=== PATIENT | female | born 1970 | race Caucasian/White ===

== ENCOUNTER → 2025-03-12 13:56 | Outpatient (REF) | payer BC, SELFPAY | LOC: RCS 13:56 | PROVIDERS: ATTENDING PHYSICIAN Internal Medicine; FAMILY PHYSICIAN Student in an Organized Health Care Education/Training Program | DX: R94.31 Abnormal electrocardiogram [ECG] [EKG] (principal); R06.02 Shortness of breath | CPT/HCPCS: 93306 ==

== ENCOUNTER 2025-07-13 16:28 | Inpatient (IN) | payer BC, SELFPAY ==
[2025-07-13 12:09] VITALS: BP 128/82
[2025-07-13 12:28] LABS: Hematocrit 38.9 % (37.0-47.0); Hemoglobin 14.1 g/dL (12.0-16.0); Mean Corp Hgb Conc. 36.2 g/dL (33.0-37.0); Mean Corpuscular Volume 82.1 fL (81.0-99.0); Nucleated Red Blood Cells % 0 %; Platelet Count 255 10^3/uL (130-400); Red Cell Dist. Width 12.3 % (11.5-14.5)
[2025-07-13 12:52] LABS: ALT (SGPT) 16 U/L (0-35); AST (SGOT) 38 U/L (14-36); Albumin 3.8 g/dl (3.5-5.0); Alkaline Phosphatase 60 U/L (38-126); Blood Urea Nitrogen 5 mg/dl (7-17); Calcium 8.8 mg/dl (8.4-10.2); Carbon Dioxide 29 mmol/L (22-30); Chloride 88 mmol/L (98-107); Glucose 77 mg/dl (70-99); Lipase 116 U/L (23-300); Magnesium 1.6 mg/dl (1.6-2.3); Potassium 4.8 mmol/L (3.5-5.1); Sodium 120 mmol/L (135-145); Total Protein 6.7 g/dl (6.3-8.2); eGFR > 60.00
--- NOTE | 2025-07-13 14:33 | ED.GENMED ---
History of Present Illness
<Cynthia Booker PA-C - Last Filed: 07/13/25 15:49>
General
Chief Complaint: Abdominal Symptoms
Source: patient
Exam Limitations: none
Time Seen by Provider: 07/13/25 14:15
History of Present Illness
History of Present Illness:
55yoF with a history of anxiety, depression, and GERD presenting for evaluation of malaise. Patient traveled to [place] last week and did not drink much during her vacation. She returned home 3 days ago and was constipated. She took a glycerin
suppository 2 days ago and was able to pass 'an inch and a half of stool.' She took a half of a saline enema yesterday. She had a normal bowel movement earlier this morning but had 1 large watery bowel movement later in the day today. She is been
drinking diluted Gatorade to stay hydrated. She is currently complaining of fatigue, muscle cramping, nausea, and a headache. She reports stomach cramping but denies any overt abdominal pain. She has lost about 30 pounds since November of this year.
She had diarrhea in November and had to go to an outpatient hydration station for IV fluids. She has had recurrent mouth sores and had a biopsy done last month by a 1st pressman on web press who thought she may have Crohn's disease. She is scheduled to have an
EGD and colonoscopy in 2 days for further evaluation of this. Her current medications include Trintellix, Nexium, and Lunesta.
Past History
<Cynthia Booker PA-C - Last Filed: 07/13/25 15:49>
Past History
ED Past Medical History: Cancer and HTN
ED Past Surgical History: Gynecological
Social History
Tobacco: Non-smoker
Alcohol: Occasional
Drug: None
Personal:
Living: with family
Employment: Employed
Family History
Family History: Hypertension, Early CAD and Other
Phy Exam
<Cynthia Booker PA-C - Last Filed: 07/13/25 15:49>
General Physical Exam
General Presentation: mild distress
General Skin: warm and dry
General Habitus: normal
General Mental: alert
General Hydration: dry mucous membranes
ENT Exam
ENT Exam: normocephalic
Cardiovascular Exam
Cardiovascular Exam: regular rate/rhythm
Pulmonary Exam
Pulmonary Exam: lungs clear, no respiratory distress, no rales, no crackles, no rhonchi and no wheezing
Gastrointestinal Exam
Gastrointestinal Exam: non tender, soft and non distended
Neurological Exam
Neurological Exam: alert
Mobile Coma Scale
Eye Opening: Spontaneous
Verbal Response: Oriented
Motor Response: Obeys Commands
GCS Total Score: 15
Skin Exam
Skin Exam: normal color and warm/dry
Psychiatric Exam
Psychiatric Exam: normal mood/affect
Course
<Cynthia Booker PA-C - Last Filed: 07/13/25 15:49>
Orders/Labs/Results
Orders:
Orders
07/13/25 12:21
Complete Blood Count/With Diff Urgent
07/13/25 12:22
Comprehensive Metabolic Panel Urgent
Lipase Urgent
Magnesium Urgent
07/13/25 14:33
Electrocardiogram (*1) Urgent
Reason for Study: Vertigo / Dizzy
EKG- Treatment ONCE
Osmolality, Random Urine Urgent
Date Specimen was Collected: 07/13/25
Time Specimen was Collected: 15:31
Urine Sodium Urgent
Date Specimen was Collected: 07/13/25
Time Specimen was Collected: 15:31
07/13/25 14:38
Add On- LAB Urgent
Tests Added?: magnesium
07/13/25 14:48
0.9% Sodium Chloride 500 ml [Nss] 500 ml IV BOLUS
Abnormal Lab Results
07/13/25 07/13/25
12:21 12:22
Absolute Lymphs (auto) 3.9 H 10^3/uL
(1.2-3.4)
Absolute Eos (auto) 1.6 H 10^3/uL
(0-0.7)
Neutrophils % 25.5 L %
(42.2-75.2)
Eosinophils % 19.4 H %
(0-6)
Sodium 120 L mmol/L
(135-145)
Chloride 88 L mmol/L
(98-107)
BUN 5 L mg/dl
(7-17)
AST 38 H U/L
(14-36)
07/13/25 12:21
07/13/25 12:22
Vital Signs
Initial and Last Documented VS:
Initial Vital Signs
Temp Pulse Resp BP Pulse Ox
97.9 F 67 19 128/82 100
07/13/25 12:09 07/13/25 12:09 07/13/25 12:09 07/13/25 12:09 07/13/25 12:09
Last Documented Vital Signs
Temp Pulse Resp BP Pulse Ox
97.9 F 54 9 128/70 100
07/13/25 12:09 07/13/25 15:30 07/13/25 15:30 07/13/25 15:25 07/13/25 14:38
<Denis Lord MD - Last Filed: 07/13/25 15:14>
Orders/Labs/Results
Orders:
Orders
07/13/25 12:21
Complete Blood Count/With Diff Urgent
07/13/25 12:22
Comprehensive Metabolic Panel Urgent
Lipase Urgent
Magnesium Urgent
07/13/25 14:33
Electrocardiogram (*1) Urgent
Reason for Study: Vertigo / Dizzy
EKG- Treatment ONCE
Osmolality, Random Urine Urgent
Date Specimen was Collected: 07/13/25
Time Specimen was Collected: 15:31
Urine Sodium Urgent
Date Specimen was Collected: 07/13/25
Time Specimen was Collected: 15:31
07/13/25 14:38
Add On- LAB Urgent
Tests Added?: magnesium
07/13/25 14:48
0.9% Sodium Chloride 500 ml [Nss] 500 ml IV BOLUS
Abnormal Lab Results
07/13/25 07/13/25
12:21 12:22
Absolute Lymphs (auto) 3.9 H 10^3/uL
(1.2-3.4)
Absolute Eos (auto) 1.6 H 10^3/uL
(0-0.7)
Neutrophils % 25.5 L %
(42.2-75.2)
Eosinophils % 19.4 H %
(0-6)
Sodium 120 L mmol/L
(135-145)
Chloride 88 L mmol/L
(98-107)
BUN 5 L mg/dl
(7-17)
AST 38 H U/L
(14-36)
07/13/25 12:21
07/13/25 12:22
Vital Signs
Initial and Last Documented VS:
Initial Vital Signs
Temp Pulse Resp BP Pulse Ox
97.9 F 67 19 128/82 100
07/13/25 12:09 07/13/25 12:09 07/13/25 12:09 07/13/25 12:09 07/13/25 12:09
Last Documented Vital Signs
Temp Pulse Resp BP Pulse Ox
97.9 F 54 9 128/70 100
07/13/25 12:09 07/13/25 15:30 07/13/25 15:30 07/13/25 15:25 07/13/25 14:38
Sukhdevlt;Cynthia Booker PA-C - Last Filed: 07/13/25 15:49>
MDM/Problems Addressed
Differential Diagnosis Includes:
55yoF here with muscle cramping, nausea, malaise, and feeling dehydrated. Recent trip to [place] last week and did not drink much during trip. Used enemas for constipation and now having loose stool. VSS. Patient appears fatigued with dry mucous
membranes. Differential diagnosis includes but is not limited to: dehydration, electrolyte abnormality, TI
Labs obtained in triage. Sodium is 120 and chloride 88. Renal function WNL. Urine studies ordered. Hyponatremia thought to be 2/2 hypovolemia. Discussed with nephrology. No indication for hypertonic saline at this time. 500cc NS bolus ordered and
patient admitted for further management.
<Cynthia Booker PA-C - Last Filed: 07/13/25 15:49>
*Pulse Oximetry
SaO2: 100
Patient hypoxic: no
*Critical Care Note
Total Time (30-74mins, 75-104mins- exclusive of procedures): Not Applicable
ED Attending Note
<Cynthia Booker PA-C - Last Filed: 07/13/25 15:49>
-
Portions of this chart may have been created with voice recognition software.� Occasional wrong word or��sound alike� substitutions may have occurred due to the inherent limitations of voice recognition software.
<Denis Lord MD - Last Filed: 07/13/25 15:14>
ED Attending Note
Patient seen and examined by attending physician: Yes
ED Attending Note:
Patient presents to ED secondary to generalized muscle cramping, headache, and fatigue over the past 5 days. Patient reports returning from [place] 4 days ago, where she had very little access to clean water. She has been hydrating herself since
returning home. In addition, patient reports having used a glycerin suppository due to constipation, with improvement. Denies fever or chills. Denies dizziness. Denies blurred vision. Denies loss of sensation or weakness. Denies abdominal
pain. Denies coughing or shortness of breath. Denies chest pain. Patient reports having had similar symptoms earlier this year, when she was treated for dehydration.
Physical Exam
General: mild distress, not acutely ill. afebrile. weak appearing
Head: nc/at. eomi
Neck: supple. normal range of motion.
Heart: s1/s2 regular rate and rhythm
Lungs: no acute respiratory distress. clear bilaterally
Abdomen: normal bowel sounds. not tender.
Neuro: alert and oriented x 3. no focal neurological deficits. normal speech
Skin: no rash
Psychiatric: well kept. interactive and cooperative
Extremities: no edema. no calf tenderness.
History and exam consistent with hyponatremia, symptomatic. Discussed with on-call neurology, . Does not recommend starting 3% hypertonic solution at this time but starting IV hydration.
Discharge Plan
Departure
Patient Disposition: Admit
Date of Disposition: 07/13/25
Time of Disposition: 14:52
Presentation/result/management discussed w/ accepting MD/DO: Hospitalist
Discharge Problem:
Hyponatremia
Prescriptions:
No Action
Theragen Tablet
1 tab PO DAILY
esomeprazole magnesium [Nexium] 20 mg Capsule,Delayed Release(Dr/Ec)
20 mg PO DAILY
eszopiclone [Lunesta] 3 mg Tablet
3 mg PO HS
Trintellix 5 mg Tablet
5 mg PO DAILY
Interventions
Interventions:
*Risk Screen - Suicide Last Done: 07/13/25 12:12
*General Assessment Last Done: 07/13/25 12:12
*Neglect/Abuse Screening Last Done: 07/13/25 12:12
*ED COVID-19 Vaccine History Last Done: 07/13/25 12:12
*ED Influenza Vaccine History Last Done: 07/13/25 12:12
Discharge Date and Time
Print Language: MAURITIAN
--- NOTE | 2025-07-13 15:01 | HPS.HSE ---
Addendum entered and electronically signed by Marcie Lunsford, DO 07/13/25 17:11:
# Pt is Gluten Free
-Gluten-free diet ordered, w fluid restriction
#Possible SIADH
-fluid restrict 48 oz
Addendum entered and electronically signed by Marcie Lunsford, DO 07/13/25 16:57:
#Urine osmolality came back at 537 and urine sodium came back at 89,
-spoke to Nephrology, hyponatremia is likely due to SIADH, not hypovolemia, and recommendation is to give 3% saline at 20 mL/h, 250 mL total and repeat a BMP now and in 4 hours from now, and this was ordered stat.
Original Note:
Family Physician
-
Family Physician:
Chief Complaint
-
Malaise, dizziness
History of Present Illness
The patient is a 55 yo woman with PMH significant for anxiety, depression, GERD, and recent weight loss of 30 pounds since November with mouth sores (getting OP GI work-up with EGD and colonoscopy at another facility in 2 days from admission - seen by
pre sales systems engineer for mouth sores and had biopsy, who recommended GI eval for possible Crohn's disease),who presented to the emergency department secondary to dizziness and feeling like she is going to pass out. She came back from a trip to [place] on
, was there for 4 days, and said that she drank very little water there due to sulfur in the water, and was drinking coffee and half of glass of wine daily. She says that she drinks about 1 glass of low calorie wine daily when she is at
home and she maciel this down. She has no history of alcohol withdrawal seizures nor delirium tremens. During the time in [place], she was not taking her psychiatric medications. She took a saline enema prior to her [place] trip along with a
glycerin enema because she was constipated. She denies any active diarrhea. She denies vomiting though feels nauseous. Since coming back on she has been drinking electrolyte sports drinks and water regularly. She currently has a
headache, dizziness, feels like she will pass out. She said she has eaten a banana and a yellow pepper today. In November she had a week-long episode of diarrhea associated with dehydration and said that she received 2 banana bags at that time. She
is seeing her primary care physician outpatient related to the symptoms of muscle cramping. She notes that she has never been diagnosed with low sodium and recently had labs that were normal. She denies taking her temperature but says she felt
feverish last night. She denies vomiting, no diarrhea, chest pain, no shortness of breath, no palpitations, decreased urine output today. She has been on her psychiatric medications for 2 years without recent medication changes. Sodium the
emergency department is 120. Urine sodium and urine osmolality are currently pending. The patient is being admitted for symptomatic hyponatremia.
Medical History
Past Medical History
Past Medical History: Reports Cancer (Uterine), GERD, HTN and Psychiatric (anxiety, depression)
Past Surgical History: Reports Gynocological (BLANCA due to uterine cancer)
Social History
Tobacco: Non-smoker
Alcohol: Occasional
Drug: None
Personal:
Living: With Family
Family History
Family History: Hypertension and Other (early CAD)
Allergies / Home Medications
Allergies reflects when Allergies were last updated in [employer].
Home Medications with original date entered in [employer]
Allergy/Medication List:
Allergies
Allergy/AdvReac Type Severity Reaction Status Date / Time
codeine AdvReac Unknown Unknown Verified 02/25/21 18:34
iv dye Allergy Unknown Uncoded 02/25/21 22:50
Home Medications
esomeprazole magnesium 20 mg capsule,delayed release (Nexium) 20 mg PO DAILY Gastrointestinal Issue 07/13/25
eszopiclone 3 mg tablet (Lunesta) 3 mg PO HS Sleep 07/13/25
therapeutic multivitamin 1 tab PO DAILY Supplement 07/13/25
vortioxetine 5 mg tablet (Trintellix) 5 mg PO DAILY 07/13/25
Review of Systems
-
A 12 point ROS was completed and negative except as noted: Yes
Physical Exam
Vital Signs
Vital Signs
Temp Pulse Resp BP Pulse Ox
97.9 F 67 19 128/82 100
07/13/25 12:09 07/13/25 12:09 07/13/25 12:07/13/25 12:07/13/25 14:38
Physical Exam
General: Well Developed, No Apparent Distress and Conversant
HEENT: NormoCephalic, Anicteric and Good Dentition
Respiratory: Clear
Cardiac: S1/S2 and Regular Rhythm
GI: Soft, Non Tender, Non Distended and Other (hypoactive bowel sounds)
Musculoskeletal: No Clubbing, No Cyanosis and No Edema
Skin: Warm, Dry and Rash (excoriated skin on left upper chest wall, pruritic, pt has been scratching)
Neuro: AO x 3, No Motor Deficits and Nonfocal/grossly intact
Psych: Calm
Laboratory Results
-
07/13/25 12:21
07/13/25 12:22
Laboratory Results
Total Bilirubin 0.8 mg/dl (0.2-1.3) 07/13/25 12:22
AST 38 U/L (14-36) H 07/13/25 12:22
ALT 16 U/L (0-35) 07/13/25 12:22
Alkaline Phosphatase 60 U/L (38-126) 07/13/25 12:22
Lipase 116 U/L (23-300) 07/13/25 12:22
Impression/Plan
-
IMPRESSION:The patient is a 55 yo woman with PMH significant for anxiety, depression, GERD, and recent weight loss of 30 pounds since November with mouth sores (getting OP GI work-up with EGD and colonoscopy at another facility in 2 days from admission
- seen by pre sales systems engineer for mouth sores and had biopsy, who recommended GI eval for possible Crohn's disease),who presented to the emergency department secondary to dizziness and feeling like she is going to pass out. She came back from a trip to
[place] on and said that she drank very little water there due to sulfur in the water, and was drinking coffee and half of glass of wine daily. She says that she drinks about 1 glass of low calorie wine daily when she is at home and she
maciel this down. She has no history of alcohol withdrawal seizures nor delirium tremens. Since coming back on she has been drinking electrolyte sports drinks and water regularly. Sodium the emergency department is 120. Urine sodium and
urine osmolality are currently pending. The patient is being admitted for symptomatic hyponatremia.
# Symptomatic hyponatremia, likely related to volume depletion, patient is fluid restricted in the emergency department and urine studies are currently pending
-Likely due to hypovolemia from dehydration, versus medication related due to Trintellix (serotonergic antidepressant), no known prior history of low sodium
- Nephrology consultation appreciated
- Awaiting urine studies at this time for plan of care. I discussed the case with nephrology and if the urine sodium is greater than 20-30 will give 3% saline, if it is less than 20 will give normal saline IV fluid bolus.
- Repeat BMP this evening and in the morning
- Check urine studies
# Anxiety depression
-
# GERD
# 30 pound weight loss since November, unknown etiology
-Patient is pursuing a GI evaluation outpatient and has an EGD and a colonoscopy scheduled in 2 days from now, suspected Crohn's on the differential
DVT prophylaxis-Lovenox
Full code
PLAN:
[2025-07-13 15:25] VITALS: BP 128/70
[2025-07-13 17:00] VITALS: BP 131/85
[2025-07-13 17:36] LABS: Blood Urea Nitrogen 4 mg/dl (7-17); Calcium 8.8 mg/dl (8.4-10.2); Carbon Dioxide 24 mmol/L (22-30); Chloride 89 mmol/L (98-107); Glucose 73 mg/dl (70-99); Potassium 4.0 mmol/L (3.5-5.1); Sodium 118 mmol/L (135-145); eGFR > 60.00
[2025-07-13] MEDS: SODIUM CHLORIDE 3% 250 IV (17:41)
[2025-07-13 17:44] VITALS: BMI 23.8
[2025-07-13 17:52] VITALS: BP 135/80
[2025-07-13] MEDS: TYLENOL 1000 MG PO (17:53)
[2025-07-13] MEDS: LOVENOX 40 MG SC (17:54)
[2025-07-13 18:35] LABS: TSH 4.79 uIU/ml (0.47-4.68)
[2025-07-13 19:30] VITALS: BP 131/75
[2025-07-13] MEDS: TUMS CHEWABLE TABLET 200 MG PO (19:33)
[2025-07-13] MEDS: ATIVAN 0.5 MG PO (19:33)
[2025-07-13 20:24] LABS: Troponin I < 0.012 ng/ml
[2025-07-13 21:50] LABS: COVID-19 Antigen Negative (Negative)
[2025-07-13 22:07] LABS: Blood Urea Nitrogen 5 mg/dl (7-17); Calcium 8.8 mg/dl (8.4-10.2); Carbon Dioxide 22 mmol/L (22-30); Chloride 92 mmol/L (98-107); Estimated Creatinine Clearance 71 ml/min; Glucose 115 mg/dl (70-99); Potassium 3.7 mmol/L (3.5-5.1); Sodium 118 mmol/L (135-145); eGFR > 60.00
--- NOTE | 2025-07-13 22:21 | W.PN.UPDATE ---
Update Note
Progress Note Update
NA level 118 with no changes from the previous result.
-3% increased to 30cc/hr, continue with fluids restrictions and to check lab by 4 am as recommended per product blending supervisor power generation turbine room operator.
--- NOTE | 2025-07-13 22:30 | PTCARENOTE ---
Patient's repeat sodium level at [address] Lunsford made aware. 3% sodium chloride running at 20ml/hr. Orders from [facility] per nephrology to increase 3% sodium to 30ml/hr and draw AM labs early. Plan of care ongoing.
[2025-07-13] MEDS: OCEAN, SALINE MIST 1 SPRAYS NASAL (22:58)
[2025-07-13 23:00] VITALS: BP 120/74
[2025-07-13] MEDS: TYLENOL 650 MG PO (23:16)
[2025-07-14] VITALS (7 sets, daily range): BP systolic 109–140; BP diastolic 68–85; BMI 23.2
[2025-07-14] MEDS: SODIUM CHLORIDE 3% 250 IV ×2 (03:48→13:06)
[2025-07-14 04:36] LABS: Blood Urea Nitrogen 6 mg/dl (7-17); Calcium 8.6 mg/dl (8.4-10.2); Carbon Dioxide 24 mmol/L (22-30); Chloride 95 mmol/L (98-107); Estimated Creatinine Clearance 62 ml/min; Glucose 83 mg/dl (70-99); Potassium 4.2 mmol/L (3.5-5.1); Sodium 121 mmol/L (135-145); eGFR > 60.00
[2025-07-14] MEDS: THERAGRAN 1 TABLET PO (07:53)
[2025-07-14] MEDS: PROTONIX 40 MG PO (07:53)
[2025-07-14 09:19] LABS: Blood Urea Nitrogen 5 mg/dl (7-17); Calcium 8.6 mg/dl (8.4-10.2); Carbon Dioxide 23 mmol/L (22-30); Chloride 95 mmol/L (98-107); Estimated Creatinine Clearance 71 ml/min; Glucose 66 mg/dl (70-99); Potassium 4.2 mmol/L (3.5-5.1); Sodium 119 mmol/L (135-145); eGFR > 60.00
--- NOTE | 2025-07-14 09:19 | W.PN.HOSP.TC ---
Addendum entered and electronically signed by Felipe Arias DO 07/15/25 10:31:
Update: Nephrology ordered 1 dose tolvaptan for today
Original Note:
Today's Communication/Plan
-
Continue hypertonic saline
Start Lasix per nephrology
Hold Trintellix
Trend BMP
Assessment / Plan
Assessment / Plan
#Euvolemic hyponatremia
- Suspected SIADH associated with her serotonergic psychiatric medicine
- Urine osmolality 537, urine sodium 89; initial serum sodium near 120
- Sodium not improving with 3% saline, remains near 120; no symptoms
- Evaluated by nephrology, recommended to continue HTS and start Lasix
- Will continue with 3% saline at 30 mL/h, Lasix per nephrology
- Continue with fluid restricted diet, trend BMP
- Goal correction 6 to 8 mEq per 24 hr
#Unintentional weight loss
- Patient following with gastroenterology as outpatient, question of IBD/Crohn's
- Will monitor for signs of IBD flare here, had some diarrhea prior to arrival
- If Crohn's workup negative, should pursue cancer screening with associated SIADH
- Monitor oral intake here
#Celiac's disease (?)
- Currently on gluten-free diet
- No signs of flare at this time
#Anxiety/depression
- Holding home vortioxetine due to association with hyponatremia
- Monitor psychiatric status
#GERD
- Home regimen includes esomeprazole daily
- Concern for IBD/Crohn's as above possibly with UGI disease
Diet: Gluten-free, 40 oz FR
DVT: SQ Lovenox
Code: Full code
Discussed with wine merchant
Anticipated Discharge: > 48 hours
Subjective/Interval History
-
Date of Service: July 14, 2025
Seen and examined at bedside. No acute events reported overnight. AFVSS this morning
Sodium not improving, remains near 120 despite hypertonic saline.
Patient states she feels well at time of my eval, denies any complaints
Objective Data
-
Labs:
Laboratory Results
07/13/25 07/13/25 07/14/25
16:46 21:29 04:03
Sodium Cancelled 118 L* 121 L
Potassium Cancelled 3.7 4.2
Chloride Cancelled 92 L 95 L
Carbon Dioxide Cancelled 22 24
BUN Cancelled 5 L 6 L
Creatinine Cancelled 0.7 0.8
Glucose Cancelled 115 H 83
Calcium Cancelled 8.8 8.6
07/14/25
08:11
Sodium Pending
Potassium Pending
Chloride Pending
Carbon Dioxide Pending
BUN Pending
Creatinine Pending
Glucose Pending
Calcium Pending
Vital Signs:
Vital Signs
Temp Pulse Resp BP Pulse Ox
97.6 F 62 12 140/85 96
07/14/25 07:00 07/14/25 07:00 07/14/25 07:00 07/14/25 07:00 07/14/25 07:00
I&O
07/13/25 07/14/25 07/15/25
06:59 06:59 06:59
Intake Total 720 / 720
Balance 720 / 720
Review of Systems
-
History Source: Patient
All other systems: Reviewed and negative
Physical Exam
-
General: Well Developed, No Apparent Distress and Appears Chronically Ill
HEENT: Normocephalic, Atraumatic, Moist Mucous Membranes and Anicteric
Respiratory: Clear to Auscultation and Non Labored Respirations; Negative Accessory Resp Muscle Use
Cardiac: Regular Rhythm and S1/S2; Negative Murmur, Rub or Gallop
GI: Soft, Nontender, Nondistended and Normal Bowel Sounds
Musculoskeletal: No Clubbing, No Cyanosis and No Edema
Skin: Warm and Dry; Negative Rash
Neuro: AO x 3, Nonfocal/Grossly Intact and Central Nerve's Intact
Psych: Calm
Data Reviewed
-
Labs: Labs Reviewed by me and Discussed with Patient
--- NOTE | 2025-07-14 09:40 | W.CON.NEPH ---
Consultation
-
Date/Time Consultation Requested: 07/13/25 173
Date/Time Consultation Performed: 07/14/25 4788
Requesting Provider: Marcie Cooper
Performing Provider: Pamela Jerry
Reason for Consultation: Hypoantremia
Medical History
-
Chief Complaint: Malaise, dizziness
History of Present Illness:
55 yo woman with PMH significant for anxiety, depression on Trintellix for 3yrs, insomnia on Liunasta many years, PTSD, GERD, and recent weight loss of 30 pounds since November with mouth sores after significant diarrhea. who presented to the emergency
department secondary to dizziness and feeling like she is going to pass out. She came back from a trip to [place] on , was there for 4 days, and said that she was drinking restricted water due to afraid of contaminated water and hard to
reach RO water in different floor. She was able to have other beverages and ate well. But whole time she did not feel well and continued dizziness. No nausea ro cp ro sob or abd pain or diarrhea. She took a saline enema prior to her [place] trip
along with a glycerin enema because she was constipated. Since coming back on she has been drinking electrolyte sports drinks and water regularly. Her labs noted in ER sodium 120 and U osmo high wiht normal sodium, was started on 3%
saline but sodiunm still not improving and down to 119 hence nephrology consulted.
NOte She Had lost her taste since diarrhea in and developed mouth sores due to which she limited her intake and lost 30lbs, she saw chemical treatment plant technician and had biopsy which reportedly revealed auto immune process and was recommended to see [facility] which
she ahs appointment in Sep. She also plan to have EGD and C acope through GI at [facility] which supposed to be tomorrow. SHe is eating well now other than meat and drinks protein shakes, she started to gain some wt lately. She also has gen cramping
since November which are better but not gone. Denies NSAIDs use. NO fever or cough or sob. No mouth sores currently.She only missed couple doses of her meds while in [place]. She reports no h/o hyponatremia before and her last lab work few months ago were
fine per her.
Past Medical History
GERD, HTN and Psychiatric (anxiety, depression), uterine cancer
Past Surgical History: Gynecological (BLANCA due to uterine cancer)
Social History
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
Tobacco: Non-Smoker
Alcohol: Daily (1 wine)
Drug: None
Personal:
Living: With Family
Family History
Family History: Not Pertinent
Allergies / Home Medications
Allergy/AdvReac Type Severity Reaction Status Date / Time
codeine AdvReac Unknown Unknown Verified 02/25/21 18:34
iv dye Allergy Unknown Uncoded 02/25/21 22:50
�Medication �Instructions �Recorded �Confirmed �Type
esomeprazole magnesium 20 mg 20 mg PO DAILY Gastrointestinal 07/13/25 07/13/25 History
capsule,delayed release (Nexium) Issue
eszopiclone 3 mg tablet (Lunesta) 3 mg PO HS Sleep 07/13/25 07/13/25 History
therapeutic multivitamin 1 tab PO DAILY Supplement 07/13/25 07/13/25 History
vortioxetine 5 mg tablet 5 mg PO DAILY Depression 07/13/25 07/13/25 History
(Trintellix)
Review of Systems
-
All other systems: Negative unless noted
Physical Exam
Vital Signs
Vital Signs
Temp Pulse Resp BP Pulse Ox
97.6 F 62 12 140/85 96
07/14/25 07:00 07/14/25 07:00 07/14/25 07:00 07/14/25 07:00 07/14/25 07:00
Lab Results
WBC 8.4 10^3/uL (4.8-10.8) 07/13/25 12:21
RBC 4.74 10^6/uL (4.20-5.40) 07/13/25 12:21
Hgb 14.1 g/dL (12.0-16.0) 07/13/25 12:21
Hct 38.9 % (37.0-47.0) 07/13/25 12:21
Plt Count 255 10^3/uL (130-400) 07/13/25 12:21
Sodium 119 mmol/L (135-145) L* 07/14/25 08:11
Potassium 4.2 mmol/L (3.5-5.1) 07/14/25 08:11
Chloride 95 mmol/L (98-107) L 07/14/25 08:11
Carbon Dioxide 23 mmol/L (22-30) 07/14/25 08:11
BUN 5 mg/dl (7-17) L 07/14/25 08:11
Creatinine 0.7 mg/dL (0.6-1.0) 07/14/25 08:11
eGFR > 60.00 07/14/25 08:11
Glucose 66 mg/dl (70-99) L 07/14/25 08:11
Calcium 8.6 mg/dl (8.4-10.2) 07/14/25 08:11
Albumin 3.8 g/dl (3.5-5.0) 07/13/25 12:22
Physical Exam
General: Awake, Alert, Oriented, AOx3, No Distress and Nontoxic
HEENT: EOMI, Anicteric, Conjunctivae Clear and No JVD
Respiratory: Clear, Normal Excursion and Nonlabored Respirations
Cardiac: S1/S2 and Regular Rate/Rhythm
Breast: Deferred by me
Abdomen: Soft, Nontender and Nondistended
Musculoskeletal: No Cyanosis and No Edema
Skin: Other (small scab rash right upper chest)
Neuro: Nonfocal/Grossly Intact
Psych: Mood/afflect pleasant, Insight/judgement good and Appropriate
Data Reviewed
-
Labs: Labs Reviewed by me, Discussed with Physician and Discussed with Patient
Assessment/Plan
-
IMP:
Symptomatic hyponatremia
Anxiety depression
GERD
Wt loss
h/o uterine cancer
Insomnia
h/o Mouth ulcers
PTSD
Plan:
A/w gen weakness and dizziness felt symp hyponatremia
urine studies suggest SIADH with use of Trintellix and ongoing illness from GI
U osmo is high 537, U na normal 89
cont HTS and follow sodium trend , likely use lasix
goal of correction 6-8meq/day, goal tonight is 124
encourage solute intake
maintain FR 40 ounces/day
TSH slightly up, check FT4, cortisol
BP stable with out hypotension
check Q4h sodiums
hold Anti depressant if possible
d/w primary
[2025-07-14 09:52] LABS: Glucose - Point of Care 96 mg/dl (70-99)
[2025-07-14] MEDS: LASIX 20 MG PO ×2 (11:09→22:18)
--- NOTE | 2025-07-14 11:37 | CM ---
Patient seen at bedside on . Patient states that she lives with her in [facility]. Patient has no DME at home and her PCP is Dr. Pearce from [facility]. [facility] on [address] now but used to use [facility].
Patient would like to transition to the [facility] due to insurance changes. Patient plan is for discharge home with no needs anticipated. CM will continue to follow for discharge planning needs.
Plan; home with no needs anticipated.
[2025-07-14 11:56] LABS: Cortisol, Random < 0.2 ug/dl
[2025-07-14 13:37] LABS: Sodium 122 mmol/L (135-145)
[2025-07-14] MEDS: TYLENOL 650 MG PO ×2 (14:15→21:12)
[2025-07-14 17:58] LABS: Sodium 122 mmol/L (135-145)
[2025-07-14] MEDS: LOVENOX 40 MG SC (17:59)
[2025-07-14] MEDS: NON-FORMULARY ITEM 1 UNIT PO (21:15)
[2025-07-14 21:45] LABS: Sodium 123 mmol/L (135-145)
[2025-07-15] VITALS (9 sets, daily range): BP systolic 88–138; BP diastolic 57–77; PULSE 75
[2025-07-15 06:39] LABS: Hematocrit 39.4 % (37.0-47.0); Hemoglobin 13.9 g/dL (12.0-16.0); Mean Corp Hgb Conc. 35.3 g/dL (33.0-37.0); Mean Corpuscular Volume 85.8 fL (81.0-99.0); Nucleated Red Blood Cells % 0 %; Platelet Count 239 10^3/uL (130-400); Red Cell Dist. Width 12.5 % (11.5-14.5)
[2025-07-15 07:07] LABS: Blood Urea Nitrogen 5 mg/dl (7-17); Calcium 8.8 mg/dl (8.4-10.2); Carbon Dioxide 25 mmol/L (22-30); Chloride 95 mmol/L (98-107); Estimated Creatinine Clearance 71 ml/min; Glucose 77 mg/dl (70-99); Potassium 4.1 mmol/L (3.5-5.1); Sodium 122 mmol/L (135-145); eGFR > 60.00
--- NOTE | 2025-07-15 08:40 | W.PN.HOSP.TC ---
Today's Communication/Plan
-
Continue 3% saline with Lasix
BMP every 4 on 3% saline
Monitor rash
Hold Trintellix
Consider CT C/A/P
Assessment / Plan
Assessment / Plan
#Euvolemic hyponatremia
- Suspected SIADH associated with her serotonergic psychiatric medicine
- Urine osmolality 537, urine sodium 89; initial serum sodium near 120
- Sodium not improving with 3% saline, remains near 120; no symptoms
- Evaluated by nephrology, recommended to continue HTS and start Lasix
- Will continue with 3% saline at 30 mL/h, Lasix 20 mg
- Continue with fluid restricted diet, trend BMP Q4 on HTS
- Goal correction 6 to 8 mEq per 24 hr
#Unintentional weight loss
- Patient following with gastroenterology as outpatient, question of IBD/Crohn's
- Will monitor for signs of IBD flare here, had some diarrhea prior to arrival
- If Crohn's workup negative, should pursue cancer screening with associated SIADH
- Monitor oral intake here
- Consider CT C/A/P
#Chest wall rash
- Unclear cause, erythematous and excoriated
- Possibly contact/exposure dermatitis, lower suspicion for infection/autoimmunity
#Celiac's disease (?)
- Currently on gluten-free diet
- No signs of flare at this time
#Anxiety/depression
- Holding home vortioxetine due to association with hyponatremia
- Monitor psychiatric status
#GERD
- Home regimen includes esomeprazole daily
- Concern for IBD/Crohn's as above possibly with UGI disease
Diet: Gluten-free, 40 oz FR
DVT: SQ Lovenox
Code: Full code
Discussed with body stylist
Anticipated Discharge: > 48 hours
Subjective/Interval History
-
Date of Service: July 15, 2025
Seen and examined at bedside. No acute intraoperative event. AFVSS this morning
Serum sodium slowly improving, up to 122 this morning. Remains on 3% saline and Lasix.
States that she felt weak when trying to stand today. Denies other acute complaints
Objective Data
-
Labs:
Laboratory Results
07/14/25 07/15/25
21:27 06:00
WBC 6.7
Hgb 13.9
Hct 39.4
Plt Count 239
Sodium 123 L 122 L
Potassium 4.1
Chloride 95 L
Carbon Dioxide 25
BUN 5 L
Creatinine 0.7
Glucose 77
Calcium 8.8
Vital Signs:
Vital Signs
Temp Pulse Resp BP Pulse Ox
98.2 F 73 16 105/73 99
07/15/25 07:00 07/15/25 07:00 07/15/25 07:00 07/15/25 07:00 07/15/25 07:00
I&O
07/14/25 07/15/25 07/16/25
06:59 06:59 06:59
Intake Total 720 / 720 1200 / 1200
Balance 720 / 720 1200 / 1200
Review of Systems
-
History Source: Patient
All other systems: Reviewed and negative
Physical Exam
-
General: Well Developed, No Apparent Distress and Appears Chronically Ill
HEENT: Normocephalic, Atraumatic, Moist Mucous Membranes and Anicteric
Respiratory: Clear to Auscultation and Non Labored Respirations; Negative Accessory Resp Muscle Use
Cardiac: Regular Rhythm and S1/S2; Negative Murmur, Rub or Gallop
GI: Soft, Nontender, Nondistended and Normal Bowel Sounds
Musculoskeletal: No Clubbing, No Cyanosis and No Edema
Skin: Warm, Dry and Rash (Chest wall, right; erythematous, excoriated)
Neuro: AO x 3, Nonfocal/Grossly Intact, Central Nerve's Intact and Other (Generalized weakness)
Psych: Calm
Data Reviewed
-
Labs: Labs Reviewed by me, Discussed with Physician, Discussed with Nurse and Discussed with Patient
[2025-07-15] MEDS: PROTONIX 40 MG PO (09:17)
[2025-07-15] MEDS: THERAGRAN 1 TABLET PO (09:17)
[2025-07-15] MEDS: SAMSCA 7.5 MG PO (09:17)
[2025-07-15] MEDS: LASIX 20 MG PO (09:21)
[2025-07-15] MEDS: SODIUM CHLORIDE 3% 250 IV (09:23)
[2025-07-15] MEDS: TYLENOL 650 MG PO ×2 (13:39→23:15)
[2025-07-15 14:14] LABS: Sodium 126 mmol/L (135-145)
--- NOTE | 2025-07-15 16:02 | W.PN.NEPH.PH ---
Today's Communication / Plan
-
see plan
Assessment/Plan
-
IMP:
Symptomatic hyponatremia
Anxiety depression
GERD
Wt loss
h/o uterine cancer
Insomnia
h/o Mouth ulcers
PTSD
Plan:
A/w gen weakness and dizziness felt symp hyponatremia
urine studies suggest SIADH with use of Trintellix and ongoing illness from GI
U osmo is high 537, U na normal 89
sodium only upto 122 this am and samsca given
oprimary team also ordered HTS, will stop it now
most recent sodium is at 126 still with appropriate correction, repeat labs later today
goal of correction 6-8meq/day
encourage solute intake
maintain FR 48 ounces/day
TSH slightly up,low FT4-magt defer to primary
low cortisol-check stim test
BP stable with out hypotension
hold Anti depressant if possible
rales on exam check CXR
d/w primary
-
-
Date of Service: July 15, 2025
CC / HPI / ROS
-
Chief Complaint:
Hypoantremia
History of Present Illness:
sodium better at 126
bp stable, no fever
cortisol low
Review of Systems:
no sob, has cough from recent URI
no pain
Labs
-
Labs:
WBC 6.7 10^3/uL (4.8-10.8) 07/15/25 06:00
RBC 4.59 10^6/uL (4.20-5.40) 07/15/25 06:00
Hgb 13.9 g/dL (12.0-16.0) 07/15/25 06:00
Hct 39.4 % (37.0-47.0) 07/15/25 06:00
Plt Count 239 10^3/uL (130-400) 07/15/25 06:00
Potassium 4.1 mmol/L (3.5-5.1) 07/15/25 06:00
Chloride 95 mmol/L (98-107) L 07/15/25 06:00
Carbon Dioxide 25 mmol/L (22-30) 07/15/25 06:00
BUN 5 mg/dl (7-17) L 07/15/25 06:00
Creatinine 0.7 mg/dL (0.6-1.0) 07/15/25 06:00
eGFR > 60.00 07/15/25 06:00
Glucose 77 mg/dl (70-99) 07/15/25 06:00
Calcium 8.8 mg/dl (8.4-10.2) 07/15/25 06:00
Albumin 3.8 g/dl (3.5-5.0) 07/13/25 12:22
Physical Exam
-
Vital Signs:
Vital Signs
Temp Pulse Resp BP Pulse Ox
98.0 F 70 16 105/61 100
07/15/25 15:35 07/15/25 15:35 07/15/25 15:35 07/15/25 15:35 07/15/25 15:35
Cardiovascular:: Regular rate and rhythm
Respiratory:: Bilateral: Rales (left base)
Lung Excursion:: Normal
Abdomen:: Nontender and Soft
Extremity Edema:: None: Bilateral:
Rowe Catheter: No
[2025-07-15] MEDS: LOVENOX 40 MG SC (17:43)
[2025-07-15 18:11] LABS: Cortisol, Random < 0.2 ug/dl
[2025-07-15] MEDS: CORTROSYN 0.25 MG IV (18:12)
[2025-07-15] MEDS: NSS (PRESERVATIVE FREE) 1 ML IV (18:12)
[2025-07-15 21:04] LABS: ACTH Stim Cortisol 60 Min 1.0 ug/dl
[2025-07-15] MEDS: NON-FORMULARY ITEM PO (21:28)
--- NOTE | 2025-07-15 22:15 | PTCARENOTE ---
Patient ordered for ACTH Stim Cortisol testing. Both the 30 minute and 60 minute samples hemolyzed. 60 minute sample was redrawn by IV team and resulted as a 1.0. Patient unable to leave floor due to testing, routine CXR postponed till am. JUSTOWRITER OPERATOR and
Nephrology consulted, orders placed for repeat testing in the am. Plan of care on going.
[2025-07-15 22:29] LABS: Sodium 132 mmol/L (135-145)
--- NOTE | 2025-07-15 23:55 | PTCARENOTE ---
Patients blood pressure at 2245 was 90/65, manual taken and was 88/60. Patient asymptomatic. MATERIAL CLERK made aware and asked for a repeat in one hour. Repeat at 2350 was 88/57. MATERIAL CLERK aware. No new orders at this time. Plan of care on going.
[2025-07-16] VITALS (7 sets, daily range): BP systolic 94–120; BP diastolic 58–78; PULSE 75; O2SAT 97; BMI 22.8
[2025-07-16] MEDS: PROTONIX 40 MG PO (07:38)
[2025-07-16] MEDS: THERAGRAN 1 TABLET PO (07:38)
[2025-07-16 08:11] LABS: Hematocrit 41.7 % (37.0-47.0); Hemoglobin 14.9 g/dL (12.0-16.0); Mean Corp Hgb Conc. 35.7 g/dL (33.0-37.0); Mean Corpuscular Volume 85.6 fL (81.0-99.0); Platelet Count 295 10^3/uL (130-400); Red Cell Dist. Width 12.9 % (11.5-14.5)
[2025-07-16] MEDS: CORTROSYN 0.25 MG IV (08:32)
--- NOTE | 2025-07-16 08:39 | W.PN.HOSP.TC ---
Today's Communication/Plan
-
Continue fluid restriction and trend BMP
Order antithyroid antibody panel
Start levothyroxine tomorrow
Repeat ACTH stim tomorrow
Assessment / Plan
Assessment / Plan
#Euvolemic hyponatremia
- Suspected SIADH associated with her serotonergic psychiatric medicine
- Urine osmolality 537, urine sodium 89; initial serum sodium near 120
- Sodium not improving with 3% saline; received 1 dose tolvaptan on 07/15
- Serum sodium now up to 1 3:32 percent saline and 1 dose tolvaptan
- Continue with fluid restricted diet, trend BMP
- Discontinue Trintellix
#Hypothyroidism
- Unclear etiology, question central etiology with possible associated AI
- Labs here with elevated TSH, low free T4; order thyroid AB panel
- Start levothyroxine 25 mcg daily tomorrow before breakfast
- Will need to follow-up OP for repeat labs and thyroid ultrasound
#Low random cortisol
- Has had soft blood pressure, hyponatremia; concern for adrenal insufficiency
- Also found to have new diagnosis of hypothyroidism, question central cause
- Nephrology ordered ACTH stim though sample today was hemolyzed
- Plan for ACTH stim test tomorrow morning; check ACTH level
- Consider prednisone 5 mg AM and 2.5 mg PM, +/- fludrocortisone
#Unintentional weight loss
- Patient following with gastroenterology as outpatient, question of IBD/Crohn's
- Will monitor for signs of IBD flare here, had some diarrhea prior to arrival
- If Crohn's workup negative, should pursue cancer screening with associated SIADH
- Monitor oral intake here
#Chest wall rash
- Unclear cause, erythematous and excoriated
- Possibly contact/exposure dermatitis, lower suspicion for infection/autoimmunity
#Celiac's disease (?)
- Currently on gluten-free diet
- No signs of flare at this time
#Anxiety/depression
- Holding home vortioxetine due to association with hyponatremia
- Monitor psychiatric status
#GERD
- Home regimen includes esomeprazole daily
- Concern for IBD/Crohn's as above possibly with UGI disease
Diet: Gluten-free, 48 oz FR
DVT: SQ Lovenox
Code: Full code
Discussed with automobile detailer
Anticipated Discharge: > 48 hours
Subjective/Interval History
-
Date of Service: July 16, 2025
Seen and examined. No acute events reported overnight. AFVSS this morning, blood pressure soft initially though improved.
Sodium now up to 132 this morning, compared to 122 yesterday. Patient states she feels well, weakness is much improved.
Nephrology ordered ACTH stim test though morning labs with baseline cortisol were hemolyzed and unable to proceed with remainder of testing
Objective Data
-
Labs:
Laboratory Results
07/15/25 07/16/25
21:58 07:53
WBC 8.2
Hgb 14.9
Hct 41.7
Plt Count 295 D
Sodium 132 L Pending
Potassium Pending
Chloride Pending
Carbon Dioxide Pending
BUN Pending
Creatinine Pending
Glucose Pending
Calcium Pending
Vital Signs:
Vital Signs
Temp Pulse Resp BP Pulse Ox
97.4 F 75 16 100/69 98
07/16/25 07:00 07/16/25 07:00 07/16/25 07:00 07/16/25 07:00 07/16/25 07:40
I&O
07/15/25 07/16/25 07/17/25
06:59 06:59 06:59
Intake Total 1200 / 1200 480 / 480
Balance 1200 / 1200 480 / 480
Review of Systems
-
History Source: Patient
All other systems: Reviewed and negative
Physical Exam
-
General: Well Developed, No Apparent Distress and Appears Chronically Ill
HEENT: Normocephalic, Atraumatic, Moist Mucous Membranes and Anicteric
Respiratory: Clear to Auscultation and Non Labored Respirations; Negative Accessory Resp Muscle Use
Cardiac: Regular Rhythm and S1/S2; Negative Murmur, Rub or Gallop
GI: Soft, Nontender, Nondistended and Normal Bowel Sounds
Musculoskeletal: No Clubbing, No Cyanosis and No Edema
Skin: Warm and Dry; Negative Rash
Neuro: AO x 3, Nonfocal/Grossly Intact and Central Nerve's Intact
Psych: Calm
Data Reviewed
-
Labs: Labs Reviewed by me, Discussed with Physician and Discussed with Patient
[2025-07-16 08:58] LABS: Absolute Neutrophils -Man Diff 2.3 10^3/uL (1.4-6.5)
[2025-07-16 08:59] LABS: Anisocytosis Slight; Hypochromasia Slight; Normal RBC Morphology No; Platelets Checked Yes; Polychromasia 1+; Target Cells 1+
[2025-07-16 09:00] LABS: Total Cells Counted 100
--- NOTE | 2025-07-16 11:10 | VATNOTE ---
Cortisol Stim study ordered, baseline labs drawn @ 0800 and sent to lab. Called to confirm receipt of specimen and was told lab received it and it was spinning and should result shortly. Shortly after this phone call, ACTH was administered at 0835,
with the anticipation of 30 minute draw being timed for 904. At time of administration, lab calls notifying unit that the baseline 0800 cortisol level is hemolyzed. I notified the direct care specialist covering this patient Dr. Muñiz, and was told to
postpone the remainder of the study without the baseline result and inabiltiy to redraw due to the medication already being administered. MD Arias and MIRLANDE Begum made aware of this situation. MD to reorder study for 07/17 AM.
[2025-07-16 11:12] LABS: Blood Urea Nitrogen 5 mg/dl (7-17); Calcium 9.5 mg/dl (8.4-10.2); Carbon Dioxide 27 mmol/L (22-30); Chloride 101 mmol/L (98-107); Estimated Creatinine Clearance 71 ml/min; Glucose 111 mg/dl (70-99); Potassium 4.2 mmol/L (3.5-5.1); Sodium 132 mmol/L (135-145); eGFR > 60.00
--- NOTE | 2025-07-16 16:29 | W.PN.NEPH.PH ---
Today's Communication / Plan
-
Cortisol stim test in the a.m.
Assessment/Plan
-
IMP:
Symptomatic hyponatremia
Anxiety depression
GERD
Wt loss
h/o uterine cancer
Insomnia
h/o Mouth ulcers
PTSD
Plan:
A/w gen weakness and dizziness felt symp hyponatremia
urine studies suggest SIADH with use of Trintellix and ongoing illness from GI
U osmo is high 537, U na normal 89
encourage solute intake
maintain FR 48 ounces/day
TSH slightly up,low FT4-magt defer to primary
hold Anti depressant if possible
Repeat stim test as the test was hemolyzed on 2 occasions
Discussed with the patient she does not understand why if it happened twice why would happen 3 times and I did not have an answer for her unfortunate but I told her I do not want to throw in the towel so to speak and would like to confirm.
Explained to her that we can check a cortisol level but if it is low we can do a stim test outpatient
She agreed to stay for testing
d/w primary
-
-
Date of Service: July 16, 2025
CC / HPI / ROS
-
Chief Complaint:
Hypoantremia
History of Present Illness:
sodium better at 126
bp stable, no fever
cortisol low
Review of Systems:
no sob, has cough from recent URI
no pain
Labs
-
Labs:
WBC 8.2 10^3/uL (4.8-10.8) 07/16/25 07:53
RBC 4.87 10^6/uL (4.20-5.40) 07/16/25 07:53
Hgb 14.9 g/dL (12.0-16.0) 07/16/25 07:53
Hct 41.7 % (37.0-47.0) 07/16/25 07:53
Plt Count 295 10^3/uL (130-400) D 07/16/25 07:53
Sodium 132 mmol/L (135-145) L 07/16/25 10:32
Potassium 4.2 mmol/L (3.5-5.1) 07/16/25 10:32
Chloride 101 mmol/L (98-107) 07/16/25 10:32
Carbon Dioxide 27 mmol/L (22-30) 07/16/25 10:32
BUN 5 mg/dl (7-17) L 07/16/25 10:32
Creatinine 0.7 mg/dL (0.6-1.0) 07/16/25 10:32
eGFR > 60.00 07/16/25 10:32
Glucose 111 mg/dl (70-99) H 07/16/25 10:32
Calcium 9.5 mg/dl (8.4-10.2) 07/16/25 10:32
Albumin 3.8 g/dl (3.5-5.0) 07/13/25 12:22
Physical Exam
-
Vital Signs:
Vital Signs
Temp Pulse Resp BP Pulse Ox
98.6 F 78 16 108/72 98
07/16/25 11:00 07/16/25 11:00 07/16/25 11:00 07/16/25 11:00 07/16/25 11:00
Cardiovascular:: Regular rate and rhythm
Lung Excursion:: Normal
Extremity Edema:: None: Bilateral:
Rowe Catheter: No
Other Findings::
Nonfocal
Psych normal affect
Musculoskeletal no atrophy noted
Normocephalic atraumatic
--- NOTE | 2025-07-16 16:52 | CM ---
Spoke with pt and in room .
Offered VN she declined need .
will drive her home at ut.
PT said no skilled need.
PLAN Home no needs
[2025-07-16] MEDS: LOVENOX 40 MG SC (17:49)
[2025-07-16] MEDS: TYLENOL 650 MG PO (20:32)
[2025-07-16] MEDS: NON-FORMULARY ITEM PO (20:35)
[2025-07-17 03:39] VITALS: BP 100/57
[2025-07-17] MEDS: SYNTHROID 25 MCG PO (05:18)
[2025-07-17 07:00] VITALS: BP 107/58
[2025-07-17] MEDS: THERAGRAN 1 TABLET PO (08:12)
[2025-07-17] MEDS: FLUSH (NSS) 1 FLUSH IV (08:12)
[2025-07-17] MEDS: PROTONIX 40 MG PO (08:12)
[2025-07-17 08:21] LABS: Blood Urea Nitrogen 6 mg/dl (7-17); Calcium 9.4 mg/dl (8.4-10.2); Carbon Dioxide 25 mmol/L (22-30); Chloride 103 mmol/L (98-107); Estimated Creatinine Clearance 71 ml/min; Glucose 80 mg/dl (70-99); Potassium 4.5 mmol/L (3.5-5.1); Sodium 133 mmol/L (135-145); eGFR > 60.00
--- NOTE | 2025-07-17 08:28 | W.PN.HOSP.TC ---
Addendum entered and electronically signed by Felipe Arias, 07/17/25 13:48:
Discussed with barrel stave inspector, Dr. Sabina Oconnell. 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 Recommended testing LH, FSH, IGF-I, prolactin. Will also check MRI brain with and without contrast.
May consider Decadron for HRT effect as patient previously with poor reaction to prednisone. Endocrinology appreciated
Original Note:
Today's Communication/Plan
-
Continue fluid restricted diet and trend BMP
Follow-up ACTH stim test and baseline ACTH
Consider MRI brain and endocrine consult
Start levothyroxine
Assessment / Plan
Assessment / Plan
#Euvolemic hyponatremia
- Suspected SIADH associated with her serotonergic psychiatric medicine
- Urine osmolality 537, urine sodium 89; initial serum sodium near 120
- Sodium not improving with 3% saline; received 1 dose tolvaptan on 07/15
- Serum sodium now up to 1 3:32 percent saline and 1 dose tolvaptan
- Continue with fluid restricted diet, trend BMP
- Discontinued Trintellix
#Hypothyroidism
- Unclear etiology, question central etiology with possible associated AI
- Labs here with elevated TSH, low free T4; ordered thyroid AB panel
- Start levothyroxine 25 mcg daily today, plan to repeat TSH in 4 to 6 weeks
- Will need to follow-up OP for repeat labs and thyroid ultrasound
- Follow-up TPO antibodies
#Low random cortisol
- Has had soft blood pressure, hyponatremia; concern for adrenal insufficiency
- Also found to have new diagnosis of hypothyroidism, question central cause
- Nephrology ordered ACTH stim though sample today was hemolyzed
- Plan for ACTH stim test tomorrow morning; check ACTH level
- Consider prednisone 5 mg AM and 2.5 mg PM, +/- fludrocortisone
- Consider endocrine consult, MRI brain
#Unintentional weight loss
- Patient following with gastroenterology as outpatient, question of IBD/Crohn's
- Will monitor for signs of IBD flare here, had some diarrhea prior to arrival
- If Crohn's workup negative, should pursue cancer screening with associated SIADH
- Monitor oral intake here
#Chest wall rash
- Unclear cause, erythematous and excoriated
- Possibly contact/exposure dermatitis, lower suspicion for infection/autoimmunity
#Celiac's disease (?)
- Currently on gluten-free diet
- No signs of flare at this time
#Anxiety/depression
- Holding home vortioxetine due to association with hyponatremia
- Monitor psychiatric status
#GERD
- Home regimen includes esomeprazole daily
- Concern for IBD/Crohn's as above possibly with UGI disease
Diet: Gluten-free, 48 oz FR
DVT: SQ Lovenox
Code: Full code
Discussed with medical representative and barrel stave inspector
Anticipated Discharge: > 48 hours
Subjective/Interval History
-
Date of Service: July 17, 2025
Seen and examined at the bedside. No acute events reported overnight. AFVSS this morning
Sodium stable today. Undergoing ACTH stim test, random cortisol very low at 0.3. Remainder of labs stable
Patient denies any complaints this morning. Weakness continues to be improved following correction of sodium
Objective Data
-
Labs:
Laboratory Results
07/17/25
07:38
WBC Pending
Hgb Pending
Hct Pending
Plt Count Pending
Sodium 133 L
Potassium 4.5
Chloride 103
Carbon Dioxide 25
BUN 6 L
Creatinine 0.7
Glucose 80
Calcium 9.4
Vital Signs:
Vital Signs
Temp Pulse Resp BP Pulse Ox
98.1 F 69 16 100/57 97
07/17/25 03:39 07/17/25 03:39 07/17/25 03:39 07/17/25 03:39 07/17/25 03:39
I&O
07/16/25 07/17/25 07/18/25
06:59 06:59 06:59
Intake Total 480 / 480 600 / 600
Balance 480 / 480 600 / 600
Review of Systems
-
History Source: Patient
All other systems: Reviewed and negative
Physical Exam
-
General: Well Developed, No Apparent Distress and Appears Chronically Ill
HEENT: Normocephalic, Atraumatic, Moist Mucous Membranes and Anicteric
Respiratory: Clear to Auscultation and Non Labored Respirations; Negative Accessory Resp Muscle Use
Cardiac: Regular Rhythm and S1/S2; Negative Murmur, Rub or Gallop
GI: Soft, Nontender, Nondistended and Normal Bowel Sounds
Musculoskeletal: No Clubbing, No Cyanosis and No Edema
Skin: Warm, Dry and Rash (Chest wall, anterior -- red, excoriated, no purulence or fluctuance)
Neuro: AO x 3, Nonfocal/Grossly Intact and Central Nerve's Intact
Psych: Calm
Data Reviewed
-
Labs: Labs Reviewed by me and Discussed with Patient
[2025-07-17 08:33] LABS: Hematocrit 39.5 % (37.0-47.0); Hemoglobin 14.2 g/dL (12.0-16.0); Mean Corp Hgb Conc. 35.9 g/dL (33.0-37.0); Mean Corpuscular Volume 85.1 fL (81.0-99.0); Platelet Count 283 10^3/uL (130-400); Red Cell Dist. Width 13.2 % (11.5-14.5)
[2025-07-17 08:53] LABS: ACTH Stim Cortisol 0 Min 0.3 ug/dl
[2025-07-17] MEDS: NSS (PRESERVATIVE FREE) 1 ML IV (09:18)
[2025-07-17] MEDS: CORTROSYN 0.25 MG IV (09:23)
--- NOTE | 2025-07-17 10:28 | VATNOTE ---
Baseline coritisol drawn and resulted. 0.25mg IV Cortrosyn given @ 0925. Cortisol drawn @ 0955 and again @ 1025.
[2025-07-17 11:00] VITALS: BP 110/64
[2025-07-17 11:01] LABS: ACTH Stim Cortisol 30 Min 2.5 ug/dl
[2025-07-17 11:07] LABS: Absolute Neutrophils -Man Diff 2.4 10^3/uL (1.4-6.5)
[2025-07-17 11:08] LABS: Normal RBC Morphology Yes; Platelets Checked Yes
[2025-07-17 11:09] LABS: Total Cells Counted 100; Toxic Granulation 1+
[2025-07-17 12:28] LABS: ACTH Stim Cortisol 60 Min 3.5 ug/dl
--- NOTE | 2025-07-17 13:33 | W.PN.NEPH.PH ---
Today's Communication / Plan
-
Endocrine evaluation for adrenal insufficiency failed stim test.
Assessment/Plan
-
IMP:
Symptomatic hyponatremia
Anxiety depression
GERD
Wt loss
h/o uterine cancer
Insomnia
h/o Mouth ulcers
PTSD
Plan:
A/w gen weakness and dizziness felt symp hyponatremia
urine studies suggest SIADH with use of Trintellix and ongoing illness from GI
U osmo is high 537, U na normal 89
encourage solute intake
maintain FR 48 ounces/day
TSH slightly up,low FT4-magt defer to primary
Stim test shows unresponsive adrenal with low baseline 0.3 then at 30 minutes only 2.5 and 60 minutes of 3.5.
Patient would need mineralocorticoid and needs endocrine evaluation further.
d/w primary
-
-
Date of Service: July 17, 2025
CC / HPI / ROS
-
Chief Complaint:
Hypoantremia
History of Present Illness:
sodium better at 126
bp stable, no fever
cortisol low
Review of Systems:
no sob, has cough from recent URI
no pain
Labs
-
Labs:
WBC 8.2 10^3/uL (4.8-10.8) 07/17/25 07:38
RBC 4.64 10^6/uL (4.20-5.40) 07/17/25 07:38
Hgb 14.2 g/dL (12.0-16.0) 07/17/25 07:38
Hct 39.5 % (37.0-47.0) 07/17/25 07:38
Plt Count 283 10^3/uL (130-400) 07/17/25 07:38
Sodium 133 mmol/L (135-145) L 07/17/25 07:38
Potassium 4.5 mmol/L (3.5-5.1) 07/17/25 07:38
Chloride 103 mmol/L (98-107) 07/17/25 07:38
Carbon Dioxide 25 mmol/L (22-30) 07/17/25 07:38
BUN 6 mg/dl (7-17) L 07/17/25 07:38
Creatinine 0.7 mg/dL (0.6-1.0) 07/17/25 07:38
eGFR > 60.00 07/17/25 07:38
Glucose 80 mg/dl (70-99) 07/17/25 07:38
Calcium 9.4 mg/dl (8.4-10.2) 07/17/25 07:38
Albumin 3.8 g/dl (3.5-5.0) 07/13/25 12:22
Physical Exam
-
Vital Signs:
Vital Signs
Temp Pulse Resp BP Pulse Ox
98.6 F 71 18 110/64 99
07/17/25 11:00 07/17/25 11:00 07/17/25 11:00 07/17/25 11:00 07/17/25 11:04
Cardiovascular:: Regular rate and rhythm
Lung Excursion:: Normal
Extremity Edema:: None: Bilateral:
Rowe Catheter: No
Other Findings::
Nonfocal
Psych normal affect
Musculoskeletal no atrophy noted
Normocephalic atraumatic
[2025-07-17] MEDS: FLORINEF 0.1 MG PO (14:52)
[2025-07-17] MEDS: MIRALAX 17 GRAMS PO (14:58)
--- NOTE | 2025-07-17 15:31 | CM ---
Ongoing testing.
Endocrine consult.
Offered VN she declined need .
[place].
PT said no skilled need.
PLAN Home no needs
[2025-07-17 15:32] VITALS: BP 101/60
[2025-07-17 15:54] LABS: FSH 28.1 mIU/ml
--- NOTE | 2025-07-17 16:24 | PTCARENOTE ---
Pt AAO x3, SMITH well, ambulatory in room, no c/o. VSS. Telemetry:NSR. On room air- pulseox 100%. Abd soft, rounded, newton PO well. Voids in BR without difficulty. Resting in bed at present,no c/o. Will continue to monitor.
[2025-07-17] MEDS: LOVENOX 40 MG SC (18:06)
[2025-07-17 19:31] VITALS: BP 103/64
[2025-07-17] MEDS: VALIUM INJECTION 2 MG IV (20:07)
[2025-07-17 21:03] LABS: Thyroglobulin Antibodies 4.2 IU/mL (0.0-4.0)
[2025-07-17 23:26] VITALS: BP 104/69
[2025-07-18] MEDS: NON-FORMULARY ITEM PO (00:12)
[2025-07-18 03:17] VITALS: BP 99/67
[2025-07-18 07:00] VITALS: BP 105/72
[2025-07-18 07:24] LABS: Hematocrit 39.9 % (37.0-47.0); Hemoglobin 13.3 g/dL (12.0-16.0); Mean Corp Hgb Conc. 33.3 g/dL (33.0-37.0); Mean Corpuscular Volume 88.7 fL (81.0-99.0); Platelet Count 280 10^3/uL (130-400); Red Cell Dist. Width 13.8 % (11.5-14.5)
[2025-07-18 07:44] LABS: Blood Urea Nitrogen 9 mg/dl (7-17); Calcium 9.1 mg/dl (8.4-10.2); Carbon Dioxide 29 mmol/L (22-30); Chloride 104 mmol/L (98-107); Estimated Creatinine Clearance 71 ml/min; Glucose 78 mg/dl (70-99); Potassium 4.6 mmol/L (3.5-5.1); Sodium 135 mmol/L (135-145); eGFR > 60.00
[2025-07-18 08:03] LABS: Absolute Neutrophils -Man Diff 2.8 10^3/uL (1.4-6.5)
[2025-07-18 08:05] LABS: Acanthocytes FEW; Hypochromasia 1+; Normal RBC Morphology No; Ovalocytes FEW; Platelets Checked Yes; Polychromasia Slight; Total Cells Counted 100
[2025-07-18] MEDS: PROTONIX 40 MG PO (09:18)
[2025-07-18] MEDS: FLORINEF 0.1 MG PO (09:18)
[2025-07-18] MEDS: THERAGRAN 1 TABLET PO (09:18)
[2025-07-18] MEDS: MIRALAX 17 GRAMS PO (09:24)
--- NOTE | 2025-07-18 10:34 | W.PN.HOSP.TC ---
Today's Communication/Plan
-
Prednisone 5 mg daily
Levothyroxine 75 mcg daily
OP endocrine follow-up
OP labs in 1 week
Discharge today
Assessment / Plan
Assessment / Plan
#Euvolemic hyponatremia
- Suspected SIADH associated with her serotonergic psychiatric medicine
- Urine osmolality 537, urine sodium 89; initial serum sodium near 120
- Sodium not improving with 3% saline; received 1 dose tolvaptan on 07/15
- Serum sodium normalized following 3% percent saline and 1 dose tolvaptan
- Continue with fluid restricted diet, trend BMP
- Discontinued Trintellix
#Central hypothyroidism
#Secondary adrenal insufficiency
#Suspected pituitary insufficiency
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
- Labs with elevated TSH and low free T4 though; positive ACTH stim test with baseline cortisol <0.03
- Also with low prolactin LH/FSH on the low side as well; IGF-I levels are pending; MRI unremarkable
- Started on 75 mcg levothyroxine for thyroid HRT, 5 mg prednisone daily for AI HRT
- Discussed with endocrinology and no need for fludrocortisone with secondary etiology
- Patient will follow-up in office with endocrinology (Dr. Sabina Oconnell) early week of 07/21
#Unintentional weight loss
- Patient following with gastroenterology as outpatient, question of IBD/Crohn's
- Question if this is actually associated with her abnormal endocrine state
- Monitor oral intake here
#Chest wall rash
- Unclear cause, erythematous and excoriated
- Possibly contact/exposure dermatitis, lower suspicion for infection/autoimmunity
#Celiac's disease (?)
- Currently on gluten-free diet
- No signs of flare at this time
#Anxiety/depression
- Holding home vortioxetine due to association with hyponatremia
- Monitor psychiatric status
#GERD
- Home regimen includes esomeprazole daily
- Concern for IBD/Crohn's as above possibly with UGI disease
Diet: Gluten-free, 48 oz FR
DVT: SQ Lovenox
Code: Full code
Discussed with solid waste manager and bias cutter
Anticipated Discharge: Today
Subjective/Interval History
-
Date of Service: July 18, 2025
Seen and examined at the bedside. No acute events reported overnight. AFVSS this morning
Sodium now WNL. Hormone panel yesterday with low LH, prolactin. MRI brain with and without contrast did not show any signs of pituitary abnormalities
Patient denies any known severe blood loss or circulatory shock related to her surgical procedures. States that her poor reaction to steroid in the past was with Solu-Medrol Dosepak. Denies any complaints today, states she feels better each day
with improving weakness.
Objective Data
-
Labs:
Laboratory Results
07/18/25
06:51
WBC 8.7
Hgb 13.3
Hct 39.9
Plt Count 280
Sodium 135
Potassium 4.6
Chloride 104
Carbon Dioxide 29
BUN 9
Creatinine 0.7
Glucose 78
Calcium 9.1
Vital Signs:
Vital Signs
Temp Pulse Resp BP Pulse Ox
97.7 F 80 12 105/72 97
07/18/25 07:00 07/18/25 07:00 07/18/25 07:00 07/18/25 07:00 07/18/25 07:00
I&O
07/17/25 07/18/25 07/19/25
06:59 06:59 06:59
Intake Total 600 / 600 1200 / 1200
Balance 600 / 600 1200 / 1200
Review of Systems
-
History Source: Patient
All other systems: Reviewed and negative
Physical Exam
-
General: Well Developed, No Apparent Distress and Other (Thin, frail-appearing)
HEENT: Normocephalic, Atraumatic, Moist Mucous Membranes and Anicteric
Respiratory: Clear to Auscultation and Non Labored Respirations; Negative Accessory Resp Muscle Use
Cardiac: Regular Rhythm and S1/S2; Negative Murmur, Rub or Gallop
GI: Soft, Nontender, Nondistended and Normal Bowel Sounds
Musculoskeletal: No Clubbing, No Cyanosis and No Edema
Skin: Warm and Dry; Negative Rash
Neuro: AO x 3, Nonfocal/Grossly Intact and Central Nerve's Intact; Negative Tremors
Psych: Calm
Data Reviewed
-
Labs: Labs Reviewed by me, Discussed with Physician and Discussed with Patient
[2025-07-18] MEDS: DELTASONE 5 MG PO (10:49)
[2025-07-18 11:00] VITALS: BP 108/72
--- NOTE | 2025-07-18 13:48 | W.DCSUMMARY ---
Discharge Summary
Discharge Data
Date of Admission: 07/13/25
Date of Discharge: 07/18/25
Total time spent discharging patient (in min): 35
-
Pending Results: Yes
Additional Pending Results:
IGF-1 levels
Hospital Course
Discharging provider: Felipe Arias DO
Discharge disposition: Home
Primary discharge diagnoses:
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
Central adrenal insufficiency
Central hypothyroidism
Hyponatremia/SIADH
Chronic discharge diagnoses:
Uterine cancer s/p BLANCA (2012)
Celiac's disease
GERD
Anxiety/depression
Hospital course:
55-year-old female that presented to the hospital with weakness and found to have serum sodium near 120 on admission labs. Was evaluated by solid waste division supervisor and started on 3% hypertonic saline with Lasix 20 mg however sodium with minimal improvement.
Received 1 dose of tolvaptan and sodium improved, was maintained on fluid restriction and ultimately sodium returned to normal range. Was found to have new diagnosis of hypothyroidism with elevated TSH and low T4. Also underwent ACTH stimulation
testing with baseline cortisol <0.2 and minimal adrenal response at 60 minutes. Discussed with endocrinology, Dr. Sabina Oconnell, who recommended testing for central etiologies. Found to have low prolactin and LH, FSH however MRI brain with and
without contrast did not show any pituitary abnormalities. Ultimately was started on levothyroxine 75 mcg and prednisone 5 mg daily while in the hospital. Sodium remained stable in the normal range with mild fluid restriction. Was recommended to
follow-up in office with PCP and asphalt plant worker within 1 week of discharge.
Consultants:
Geological Drafter: Pamela Tompkins MD
Windows Server Support Technician: Sabina Oconnell MD
Pertinent imaging findings:
MRI brain with and without contrast (07/17/2025)
IMPRESSION: No acute intracranial abnormality noted. Normal MR appearance of the pituitary. Severe panparanasal sinusitis.
Procedural findings: N/A
Follow-up:
Family doctor within 1 week of discharge
Windows Server Support Technician within 1 week of discharge
Repeat BMP within 7 days
Discharge Plan
-
Patient Disposition: Home (Routine Discharge)
Discharge Diagnosis/Procedures: Pituitary insufficiency
Secondary hypothyroidism
Secondary adrenal insufficiency
Hyponatremia
Soft blood pressure
Condition: Fair
Diet: Other diet
Additional Diets: Dietary fluid restriction of 50 ounces daily
Activity: As tolerated
Driving Restrictions: No driving for 24 hours
Bathing Restrictions: None
Blood Work: BMP, magnesium level, CBC with differential and 5 to 7 days
Repeat TSH and free T4 levels in 4 to 6 weeks with PCP or asphalt plant worker
Others Tests: Monitor home blood pressure. Contact your family doctor if BP <90/50 mmHg
Referrals:
Sabina Oconnell MD [Consulting Staff, Endocrinology] - in less than 1 week
Nyasia Pearce MD [Family Provider, Family Practice] - in less than 1 week
Prescriptions:
New
prednisone 5 mg Tablet
5 mg PO DAILY 30 Days Qty: 30 0RF
levothyroxine 75 mcg Tablet
75 mcg PO DAILY @ 0600 30 Days Qty: 30 0RF
Continued
therapeutic multivitamin Tablet
1 tab PO DAILY
esomeprazole magnesium [Nexium] 20 mg Capsule,Delayed Release(Dr/Ec)
20 mg PO DAILY
eszopiclone [Lunesta] 3 mg Tablet
3 mg PO HS
Discontinued
Trintellix 5 mg Tablet
5 mg PO DAILY
Discharge Orders:
Discharge Patient (As Directed); Ordered 07/18/25
Ordered By: Felipe Arias
Discharge Date and Time
Print Language: CZECH
[2025-07-20 14:40] LABS: IGF-1 Z Score Calculation -0.8
== END 2025-07-18 15:17 | disposition home or self-care (01) | DRG 644 ==
LOC: 4 EAST ACU 16:28
PROVIDERS: Emergency Medicine; Nurse Practitioner Family; Physician Assistant; ADMITTING PHYSICIAN Internal Medicine; ATTENDING PHYSICIAN Internal Medicine; EMERGENCY PHYSICIAN Emergency Medicine; FAMILY PHYSICIAN Student in an Organized Health Care Education/Training Program; OTHER PHYSICIAN Internal Medicine
DX: E22.2 Syndrome of inappropriate secretion of antidiuretic hormone (principal); E27.40 Unspecified adrenocortical insufficiency; E27.49 Other adrenocortical insufficiency; F32.A Depression, unspecified; F41.9 Anxiety disorder, unspecified; K21.9 Gastro-esophageal reflux disease without esophagitis; K90.0 Celiac disease; E03.8 Other specified hypothyroidism; Z11.52 Encounter for screening for COVID-19; E03.9 Hypothyroidism, unspecified; E23.0 Hypopituitarism
CPT/HCPCS: 70553; 71046; 80048; 80053; 82024; 82533; 82962; 83001; 83002; 83690; 83735; 83935; 84146; 84295; 84300; 84305; 84439; 84443; 84484; 85025; 86376; 86800; 87502; 87811; 93005; 97116; 97162; 97166; 99285; A9575